=== PATIENT | female | born 1985 | race Two or more races ===

== ENCOUNTER 2018-05-13 12:48 | Emergency (ER) | payer MEDICAID ==
[~2018-05-13] VITALS: Ht 160 cm; Wt 73.9 kg
[2018-05-13 13:11] VITALS: Ht 160 cm; Wt 73.9 kg
[2018-05-13 14:35] VITALS: BP 113/81
== END 2018-05-13 14:35 | disposition home or self-care (01) ==
LOC: ED 12:48
DX: B34.9 Viral infection, unspecified (principal)